=== PATIENT | male | born 1985 | race Caucasian/White ===

== ENCOUNTER 2017-03-20 19:57 | Emergency (ER) | payer OTHER ==
[~2017-03-20] VITALS: Ht 170.2 cm; Wt 65.3 kg
== END 2017-03-20 22:01 | disposition home or self-care (01) ==
LOC: ER 19:57
DX: S40.011A Contusion of right shoulder, initial encounter (principal); X39.8XXA Other exposure to forces of nature, initial encounter; Y93.89 Activity, other specified; Y92.89 Other specified places as the place of occurrence of the external cause; Y99.8 Other external cause status